=== PATIENT | male | born 1960 | race African-American/Black ===

== ENCOUNTER 2018-11-27 06:18 | Day surgery (SDC) | payer OTHER ==
[~2018-11-27] VITALS: Ht 190.5 cm; Wt 130.2 kg
[2018-11-27] VITALS (13 sets, daily range): BP systolic 115–153; BP diastolic 77–101
[~2018-11-27 06:18] MED LIST: Clindamycin 600mg/D5W 50ml IV ONE; celeBREX 200mg Cap **SURGERY PATIENTS ONLY ORAL ONE; oxyCONTIN 20mg tab ORAL ONE
--- NOTE | 2018-11-27 07:17 | Operative Note - PDOC ---
Operative Note Operative Note Pre-op Diagnosis: left shoulder impingement Procedure: see op report Post-op Diagnosis: same as pre-op plus Operative Findings: consistent w/pre-op dx studies Anesthesia: regional Specimen: none Complications: none Condition: stable Estimated Blood Loss: none Implant(s) used?: No Paulino Rashid MD Nov 27, 2018 07:17
--- NOTE | 2018-11-27 07:17 | Pre-Procedure Note/Attestation ---
Pre-Procedure Note/Attestation Complete Prior to Procedure Planned Procedure: left Procedure Narrative: shoulder arthroscopy, sad Indications for Procedure Pre-Operative Diagnosis: left shoulder impingement Attestation I attest that I discussed the nature of the procedure; its benefits; risks and complications; and alternatives (and the risks and benefits of such alternatives ), prior to the procedure, with the patient (or the patient's legal outreach representative). I attest that, if there was a reasonable possibility of needing a blood transfusion, the patient (or the patient's legal outreach representative) was given the [facility] standardized written summary, pursuant to the Ernesto Rozina Blood Safety Act ([place] Health and Safety Code # 1645, as amended). I attest that I re-evaluated the patient just prior to the surgery and that there has been no change in the patient's H&P, except as documented below: Paulino Rashid MD Nov 27, 2018 07:17
[2018-11-27] MEDS ORDERED: NKM (07:42)
[2018-11-27] MEDS ORDERED: LR 1000ml 1,000 ML IVLG SCH (09:01)
--- NOTE | 2018-11-27 09:01 | Anethesia Preoperative Eval ---
Anesthesia Pre-op PMH/ROS General Date of Evaluation: Nov 27, 2018 Anesthesiologist: Leonid ASA Score: ASA 3 Mallampati Score Class I : Soft palate, uvula, fauces, pillars visible Class II: Soft palate, uvula, fauces visible Class III: Soft palate, base of uvula visible Class IV: Only hard plate visible Mallampati Classification: Class III Surgeon: Rachid Diagnosis: Left shoulder impingement Surgical Procedure: Left shoulder arthroscopy Anesthesia History: none Family History: no anesthesia problems Allergies: Coded Allergies: PENICILLINS (Verified Allergy, Unknown, 11/26/18) Medications: see eMAR Patient NPO?: Yes NPO Date: Nov 27, 2018 NPO Time: 22:00 Past Medical History Cardiovascular: Reports: HTN; Denies: CAD, [place], valve dz, arrhythmia, other Pulmonary: Denies: asthma, COPD, CHICA, other Gastrointestinal/Genitourinary: Reports: GERD; Denies: CRI, ESRD, other Neurologic/Psychiatric: Denies: dementia, CVA, depression/anxiety, TIA, other Endocrine: Denies: DM, hypothyroidism, steroids, other HEENT: Denies: cataract (L), cataract (R), glaucoma, TOGIAK (L), TOGIAK (R), other Hematology/Immune: Denies: anemia, DVT, bleeding disorder, other Musculoskeletal/Integumentary: Denies: OA, RA, DJD, DDD, edema, other Other: obesity - morbid PSxH Narrative: Right knee arthroscopy Anesthesia Pre-op Phys. Exam Physician Exam Last Vital Signs Date Time Temp Pulse Resp B/P (MAP) Pulse Ox O2 Delivery O2 Flow Rate FiO2 11/27/18 07:43 97.7 58 20 132/77 99 Room Air Constitutional: NAD Cardiovascular: RRR Respiratory: CTA Airway Exam Mallampati Score: Class III MO: limited Neck: short, obese ROM: limited Teeth: intact Anesthesia Pre-op A/P Labs see chart Studies Pre-op Studies: EKG - sr Risk Assessment & Plan Assessment: ASA III Plan: GA Status Change Before Surgery: No Pre-Antibiotics Drug: Clindamycin 600mg Given Within 1 Hr of Incision: Yes Lala Saul MD Nov 27, 2018 09:01
[2018-11-27] MEDS ORDERED: DiphenhydrAMINE 50mg/ml Inj IVP PRN (09:15)
[2018-11-27] MEDS ORDERED: fentaNYL 100 mcg/2 mL IV PRN (09:15)
[2018-11-27] MEDS ORDERED: LORazepam Inj 2mg/ml 1ml IV PRN (09:15)
[2018-11-27] MEDS ORDERED: Metoclopramide 10mg/2ml Inj IVP PRN ×2 (09:15→09:30)
[2018-11-27] MEDS ORDERED: Ketorolac 30mg Inj IV PRN (09:15)
[2018-11-27] MEDS ORDERED: Midazolam 2mg/2ml Inj IVP PRN (09:15)
[2018-11-27] MEDS ORDERED: Hydromorphone 0.5mg/0.5ml inj IVP PRN (09:15)
[2018-11-27] MEDS ORDERED: Bupivacaine w/Epi 0.5% 30ml Vial INJ ONE (09:27)
[2018-11-27] MEDS ORDERED: Kenalog-40 1ml Vial ONE (09:27)
[2018-11-27] MEDS ORDERED: EPINEPHrine 1mg/1ml Amp ONE (09:27)
[2018-11-27] MEDS ORDERED: Clindamycin 600mg 50 ML IV ONE (09:31)
[2018-11-27] MEDS ORDERED: Succinylcholine 20mg/ml 10ml vial ONE (09:31)
[2018-11-27] MEDS ORDERED: fentaNYL 100 mcg/2 mL IV ONE (09:35)
[2018-11-27] MEDS ORDERED: Midazolam 2mg/2ml Inj ONE (09:35)
[2018-11-27] MEDS ORDERED: Propofol 200mg/20ml IV ONE (09:35)
[2018-11-27] MEDS ORDERED: Lidocaine 1% MPF 10mg/ml 5ml ONE (09:35)
[2018-11-27] MEDS ORDERED: Ketorolac 30mg Inj ONE ×2 (09:42→10:52)
[2018-11-27] MEDS ORDERED: Dexamethasone 4mg/ml vial ONE (09:42)
[2018-11-27] MEDS ORDERED: LR 1000ml ONE (10:00)
[2018-11-27] MEDS ORDERED: NS Irrig 4000ml IRRIG ONE ×2 (10:00→10:47)
--- NOTE | 2018-11-27 11:25 | Immediate Post-Op Evaluation ---
Immediate Post-Op Evalulation Immediate Post-Op Evalulation Procedure: LEft shoulder arthroscopy Date of Evaluation: Nov 27, 2018 Time of Evaluation: 11:28 IV Fluids: 1L Blood Products: 0 Estimated Blood Loss: min Urinary Output: 0 Blood Pressure Systolic: 115 Blood Pressure Diastolic: 77 Pulse Rate: 84 Respiratory Rate: 17 O2 Sat by Pulse Oximetry: 96 Temperature (Fahrenheit): 97 Pain Score (1-10): 0 Nausea: No Vomiting: No Complications 0 Patient Status: awake, reacts, patent, none Hydration Status: adequate Drug: Clindamcyin 600mg Given Within 1 Hr of Incision: Yes Lala Saul MD Nov 27, 2018 11:25
--- NOTE | 2018-11-27 11:26 | 48 Hour Post Anesthesia Eval ---
Post Anesthesia Evaluation Procedure: LEft shoulder arthroscopy Date of Evaluation: Nov 27, 2018 Airway: patent Nausea: No Vomiting: No Pain Intensity: 0 Hydration Status: adequate Cardiopulmonary Status: at baseline Mental Status/LOC: patient returned to baseline Post-Anesthesia Complications: 0 Follow-up care needed: ready to discharge Lala Saul MD Nov 27, 2018 11:26
[2018-11-27] MEDS ORDERED: D5 1/2NS 1,000 ML IV SCH (17:01)
[2018-11-27] MEDS ORDERED: Norco 5mg/325mg tab ORAL PRN (17:01)
[2018-11-27] MEDS ORDERED: Tylenol #3 tab (300mg/30mg) ORAL PRN (17:01)
[2018-11-27] MEDS ORDERED: HYDROmorphone 1mg/ml Carpuject SUBQ PRN (17:01)
--- NOTE | 2018-11-27 19:00 | Operative Note - Dictated ---
DATE OF OPERATION: 11/27/2018 PREOPERATIVE DIAGNOSIS: Left shoulder traumatic impingement syndrome. POSTOPERATIVE DIAGNOSES: 1. Grade 1 superior labral tear. 2. Left shoulder partial superior subscapular tendon tear. 3. Partial articular-sided rotator cuff tear. 4. Impingement syndrome. 5. Bursitis. PROCEDURES: Left shoulder diagnostic arthroscopy, extensive intraarticular debridement to his left shoulder subacromial decompression bursectomy. SURGEON: Paulino Rashid M.D. ANESTHESIA: Interscalene with general. INDICATION FOR PROCEDURE: The patient is a pleasant gentleman with progressive left shoulder pain despite conservative treatment. He had MRI, which showed , but he still has difficulty with activities of daily living, therefore elected to undergo left shoulder diagnostic arthroscopy with subacromial decompression bursectomy. Risks, limitations, expectations, complication of the procedure including the need for additional procedure discussed with the patient based on the intraoperative findings. DESCRIPTION OF PROCEDURE: After informed consent was obtained, the patient was brought to the operating room and placed the patient in beach chair position. Left shoulder was prepped and draped in a sterile manner. Time-out was performed. Ancef was administered. The posterolateral stab incision was then made. Trocar was introduced gradually in the joint. There was a small superior labral tear. There was a tear of the superior aspect of the subscap and biceps tendon. Intact. No chondral damage. The undersurface of the rotator cuff had a partial articular-sided rotator cuff tear. Shaver was then placed at the rotator interval and debridement of the superior labral tear, subscap tear, and supraspinatus tear was performed. Once that was done, the camera was placed in the subacromial space. The undersurface acromion was identified after the bursectomy was completed. Acromioplasty was started from lateral to medial comparing posterior anterior. Once that was done, the bursectomy was completed posteriorly. Once that was done, the instruments were removed. Portal sites were closed with 3-0 Monocryl sutures. Steri-Strips and a sterile dressing were applied. The patient was awoken and taken to recovery room with stable vital signs. ESTIMATED BLOOD LOSS: None. COMPLICATIONS: None. SPECIMENS: None. IMPLANTS: None. Paulino Rashid M.D. DR: BENEDICTO JOB#: [id number] CC:
== END 2018-11-27 15:45 | disposition home or self-care (01) ==
LOC: SUR 06:18
DX: M75.42 Impingement syndrome of left shoulder (principal); S43.492A Other sprain of left shoulder joint, initial encounter; M75.102 Unspecified rotator cuff tear or rupture of left shoulder, not specified as traumatic; M71.9 Bursopathy, unspecified; I10 Essential (primary) hypertension; K21.9 Gastro-esophageal reflux disease without esophagitis; E66.01 Morbid (severe) obesity due to excess calories; Z88.0 Allergy status to penicillin
CPT/HCPCS: 29823; 29826; J0171; J0330; J0690; J1100; J1170; J1885; J2250; J2405; J2704; J3010; J3301; 94003; 94150; S0077